=== PATIENT | male | born 1980 | race Two or more races ===

== ENCOUNTER 2017-06-25 17:13 | Emergency (ER) | payer OTHER ==
[~2017-06-25] VITALS: Ht 180.3 cm; Wt 136.1 kg
[~2017-06-25 17:13] MED LIST: KEFLEX500 MG ORAL; NKM; NYSTATIN OINT15 GM TOPIC
[2017-06-25 17:35] VITALS: BP 128/74
[2017-06-25] MEDS ORDERED: Lidocaine 1% MPF 10mg/ml 5ml INJ ONE (17:45)
[2017-06-25] MEDS ORDERED: CEPHALEXIN500 MG ORAL (18:09)
[2017-06-25 18:27] VITALS: BP 128/74
--- NOTE | 2017-06-25 20:08 | Emergency Room Report ---
History of Present Illness General Chief Complaint: Abdominal Pain Source: Patient Present Illness HPI Patient is a 37-year-old male who presented after increased generalized abdominal discomfort. Patient had gradual onset of symptoms. He reports having increased the abdominal protrusion of hernia. The patient denies any vomiting or diarrhea. He denies any fever. He had not been having any bloody stools. He reports having some recent changes in his urination as well as some blood during intercourse. Allergies: Coded Allergies: No Known Allergies (Unverified , 10/09/12) Patient History Past Medical History: see triage record Reviewed Nursing Documentation: PMH: Agreed; PSxH: Agreed Nursing Documentation-PMH Past Medical History: No Stated History Review of Systems All Other Systems: negative except mentioned in HPI Physical Exam Vital Signs Date Time Temp Pulse Resp B/P (MAP) Pulse Ox O2 Delivery O2 Flow Rate FiO2 06/25/17 17:33 97.9 78 29 128/74 99 Room Air 97.9 Sp02 EP Interpretation: reviewed, normal General Appearance: normal inspection, well appearing, no apparent distress, alert, GCS 15, obese Head: atraumatic ENT: normal ENT inspection, hearing grossly normal, normal voice Neck: normal inspection, full range of motion, supple, no bony tend Respiratory: normal inspection, lungs clear, normal breath sounds, no respiratory distress, no retraction, no wheezing Cardiovascular #1: regular rate, rhythm, no edema Gastrointestinal: normal inspection, normal bowel sounds, non tender, soft, no guarding, no hernia Genitourinary: no CVA tenderness Musculoskeletal: normal inspection, back normal, normal range of motion Neurologic: normal inspection, alert, responsive, speech normal Psychiatric: normal inspection, judgement/insight normal, mood/affect normal Skin: normal inspection, normal color, no rash Medical Decision Making Diagnostic Impression: Primary Impression: Urethritis Additional Impression: Ventral hernia without obstruction or gangrene ER Course Patient presented for abdominal pain. Differential diagnoses included ischemic bowel, appendicitis, perforated viscus, abdominal aortic aneurysm, inferior myocardial infarction, viral gastroenteritis. Patient has a benign exam and does not appear to require any further imaging or laboratory testing at this time. The patient was given empiric treatment fo antibiotic due to urinary symptoms The patient is advised to follow up with primary care doctor in 1-2 days for general surgery referral.. Patient is advised to return if any worsening condition or if any changes in status that are concerning. This report is dictated with Dragon sustainable design coordinator software which may occasionally lead to discrepancies related to use of this software. EKG Diagnostic Results Rate: normal Rhythm: NSR ST Segments: no acute changes Last Vital Signs Date Time Temp Pulse Resp B/P (MAP) Pulse Ox O2 Delivery O2 Flow Rate FiO2 06/25/17 18:27 97.9 78 29 128/74 99 Room Air 97.9 Status: improved Disposition: HOME, SELF-CARE Condition: Stable Scripts Cephalexin* (KEFLEX*) 500 Mg Capsule 500 MG ORAL EVERY 6 HOURS, #28 CAP Prov: Mitesh Montgomery 06/25/17 Referrals: [facility] (PCP) Patient Instructions: Abdominal Pain, Adult Mitesh Montgomery June 25, 2017 20:08
== END 2017-06-25 18:33 | disposition home or self-care (01) ==
LOC: EMR 17:51
DX: N34.2 Other urethritis (principal); K43.9 Ventral hernia without obstruction or gangrene
CPT/HCPCS: 96372; 99283; J0696

== ENCOUNTER 2017-11-14 00:50 | Emergency (ER) | payer MEDICAID, OTHER ==
[~2017-11-14] VITALS: Ht 180.3 cm; Wt 131.5 kg
[~2017-11-14 00:50] MED LIST changes: +CEPHALEXIN500 MG ORAL
[2017-11-14 01:13] VITALS: BP 154/87
[2017-11-14] MEDS ORDERED: NORCO 5-325 TA1 EACH ORAL (01:22)
[2017-11-14] MEDS ORDERED: PENICILLIN V P500 MG ORAL (01:22)
[2017-11-14 01:27] VITALS: BP 154/87
--- NOTE | 2017-11-14 03:50 | Emergency Room Report ---
History of Present Illness General Chief Complaint: Toothache Source: Patient Present Illness HPI Patient is a 37-year-old male who presented after increased right upper dental pain. Patient reports having recent injury which he cracked his tooth. He reports having severe pain. He denies any fever. He reports having seen at dentist and has been scheduled to have his tooth worked on. The patient reports having no vomiting. He denies any facial swelling. Allergies: Coded Allergies: No Known Allergies (Unverified , 10/09/12) Patient History Past Medical History: see triage record Reviewed Nursing Documentation: PMH: Agreed; PSxH: Agreed Nursing Documentation-PMH Past Medical History: No Stated History Review of Systems All Other Systems: negative except mentioned in HPI Physical Exam Vital Signs Date Time Temp Pulse Resp B/P (MAP) Pulse Ox O2 Delivery O2 Flow Rate FiO2 11/14/17 01:10 97.8 62 16 154/87 97 Room Air 97.9 General Appearance: well appearing, no apparent distress, alert, GCS 15, non- toxic Head: normocephalic, atraumatic ENT: hearing grossly normal, normal voice, other - dental fracture upper tooth Neck: full range of motion, supple Respiratory: no respiratory distress, speaking full sentences Musculoskeletal: no calf tenderness Neurologic: normal gait Psychiatric: mood/affect normal Skin: no rash Medical Decision Making Diagnostic Impression: Primary Impression: Tooth fracture ER Course Patient presented for toothache. Differential diagnosis included but was not limited to dental fracture, trigeminal neuralgia, dental abscess, dry socket, osteomyelitis, nerve injury. The patient was noted to have a benign exam. There is no evidence of infection. Patient given prescription for antibiotics and pain medication.The patient is advised to follow up with dentist in 1-2 days. Patient is advised to return if any worsening condition or if any changes in status that are concerning. Last Vital Signs Date Time Temp Pulse Resp B/P (MAP) Pulse Ox O2 Delivery O2 Flow Rate FiO2 11/14/17 01:27 97.8 67 16 154/87 97 Room Air 97.8 Status: improved Disposition: HOME, SELF-CARE Condition: Stable Scripts Penicillin V Potassium* (PENVK*) 500 Mg Tablet 500 MG ORAL TWICE A DAY, #14 TAB Prov: Mitesh Montgomery MD 11/14/17 Hydrocodone Bit/Acetaminophen 5-325* (NORCO 5-325*) 1 Each Tablet 1 TAB ORAL Q6H PRN for For Pain, #10 TAB 0 Refills Prov: Mitesh Montgomery MD 11/14/17 Referrals: [facility]ERR[facility] (PCP) Patient Instructions: Dental Pain Mitesh Montgomery MD Nov 14, 2017 03:50
== END 2017-11-14 01:27 | disposition home or self-care (01) ==
LOC: EMR 01:27
DX: S02.5XXA Fracture of tooth (traumatic), initial encounter for closed fracture (principal); X58.XXXA Exposure to other specified factors, initial encounter; Y99.8 Other external cause status; Z87.891 Personal history of nicotine dependence
CPT/HCPCS: 99282

== ENCOUNTER 2018-06-28 16:43 | Emergency (ER) | payer MEDICAID ==
[~2018-06-28] VITALS: Ht 175.3 cm; Wt 81.6 kg
[~2018-06-28 16:43] MED LIST changes: +NORCO 5-325 TA1 EACH ORAL; +PENICILLIN V P500 MG ORAL
--- NOTE | 2018-06-28 17:00 | NUR ---
ED Nurse Note: Patient taken down for UA.
--- NOTE | 2018-06-28 17:00 | NUR ---
ED Nurse Note: Patient walked in c/o swelling of the scrotum x 1 day. Pt rates pain at 6/10. Pt is A&O x4, V/S stable with no s/s of acute distress noted at this time. ERMD at bedside evaluating the pt.
[2018-06-28 17:03] VITALS: BP 126/83
[2018-06-28 17:16] LABS: APPEARANCE,URINE CLEAR; BILIRUBIN, URINE NEGATIVE (NEGATIVE); GLUCOSE, URINE (UA) NEGATIVE (NEGATIVE); KETONES,URINE 1+ (NEGATIVE); LEUKOCYTE ESTERASE ,URINE 2+ (NEGATIVE); NITRITE,URINE NEGATIVE (NEGATIVE); PH,URINE 6 (4.5-8.0); PROTEIN,URINE 1+ (NEGATIVE); UROBILINOGEN,URINE NORMAL MG/DL (0.0-1.0)
[2018-06-28 17:24] LABS: COLOR,URINE YELLOW
--- NOTE | 2018-06-28 18:32 | Diagnostic Imaging Report ---
EXAM: US Scrotum CLINICAL HISTORY: PAIN TECHNIQUE: Real-time ultrasound of the scrotum with color Doppler and image documentation. COMPARISON: No relevant prior studies available. FINDINGS: Right testicle: Unremarkable. No mass. No torsion. Left testicle: Unremarkable. No mass. No torsion. Epididymides: Enlarged left epididymis, particularly the tail, which is also hyperemic. Favor epididymitis. Right epididymis demonstrates a 7 mm cyst or spermatocele. Scrotum: Moderate right hydrocele. IMPRESSION: Findings suggesting left epididymitis. Moderate right hydrocele. No testicular mass or torsion.
[2018-06-28] MEDS ORDERED: Azithromycin 250mg tab ORAL ONE (18:45)
[2018-06-28] MEDS ORDERED: Lidocaine 1% MPF 10mg/ml 5ml INJ ONE (18:45)
--- NOTE | 2018-06-28 18:52 | Emergency Room Report ---
History of Present Illness General Chief Complaint: Male Urogenital Problems Source: Patient Present Illness HPI The patient presents with rest left testicular swelling and discomfort. He took some Motrin yesterday. There is no trauma. He denies any fevers or chills. He's had a lesion underneath his foreskin that his doctor said was inflammation of the tip of his penis. This has happened in the past and seems related to sexual activity. He denies there being any pain in the tip of the penis. There is no discharge or dysuria. He's never had this problem with his testicle before but is concerned that this might be something serious and so he presented here. The pain is 6/10 at this time. Worse when he standing up and better when he lays down. There is no radiation of the pain. He denies having an inguinal hernia but he's had no ventral hernia in the past. This is not bothering this time. The patient is never had a diagnosis of herpes. He says the lesions are occasional on his penis. No throat pain, joint pain, other rashes, headache, nausea, vomiting, diarrhea. He is anxious about what might be happening in his testicle. Allergies: Coded Allergies: No Known Allergies (Unverified , 10/09/12) Patient History Past Medical History: see triage record Social History: Denies: smoking Social History Narrative From home Reviewed Nursing Documentation: PMH: Agreed; PSxH: Agreed Nursing Documentation-PMH Past Medical History: No Stated History Review of Systems All Other Systems: negative except mentioned in HPI Physical Exam Vital Signs Date Time Temp Pulse Resp B/P (MAP) Pulse Ox O2 Delivery O2 Flow Rate FiO2 06/28/18 16:56 99.0 78 18 97 Room Air 06/28/18 17:03 126/83 Sp02 EP Interpretation: reviewed, normal General Appearance: well appearing, no apparent distress, GCS 15 Head: normocephalic Eyes: bilateral eye normal inspection, bilateral eye PERRL, bilateral eye EOMI ENT: moist mucus membranes Neck: supple Respiratory: lungs clear, normal breath sounds Cardiovascular #1: regular rate, rhythm Cardiovascular #2: 2+ radial (R) Gastrointestinal: non tender, soft, no hernia, overweight Genitourinary: no CVA tenderness, other - L testicular swelling and tender epidydimus (slight) - uncircumcised, small ulcerated lesions base of glans Musculoskeletal: back normal, gait/station normal, normal range of motion Neurologic: alert, oriented x3, grossly normal Psychiatric: anxious Skin: normal inspection, warm/dry Medical Decision Making Diagnostic Impression: Primary Impression: Acute epididymitis Additional Impression: Balanitis ER Course Patient presents with testicular pain and swelling. Differential includes torsion, epididymitis, hydrocele amongst others. Exam is against torsion however the patient needs to have evaluation with urinalysis and ultrasound. Ultrasound with epididymitis. Urinalysis pyuria. The patient is treated with Rocephin and azithromycin here and placed on ciprofloxacin. The lesions on the glans appear that they might be herpetic discussed with the patient and he was told that he needs to follow-up. Patient stable for outpatient observation and treatment. Laboratory Tests Test 06/28/18 17:03 Urine Color Yellow Urine Appearance Clear Urine pH 6 (4.5-8.0) Urine Specific [place] 1.020 (1.005-1.035) Urine Protein 1+ (NEGATIVE) H Urine Glucose (UA) Negative (NEGATIVE) Urine Ketones 1+ (NEGATIVE) H Urine Blood 3+ (NEGATIVE) H Urine Nitrite Negative (NEGATIVE) Urine Bilirubin Negative (NEGATIVE) Urine Urobilinogen Normal MG/DL (0.0-1.0) Urine Leukocyte Esterase 2+ (NEGATIVE) H Urine RBC 2-4 /HPF (0 - 0) H Urine WBC 5-10 /HPF (0 - 0) H Urine Squamous Epithelial Cells Few /LPF (NONE/OCC) Urine Bacteria Few /HPF (NONE) Urine Mucus Moderate /LPF (NONE/OCC) H CT/MRI/US Diagnostic Results CT/MRI/US Diagnostic Results : Imaging Test Ordered: u/s testicle Impression L hydrocele, R epididymitis Last Vital Signs Date Time Temp Pulse Resp B/P (MAP) Pulse Ox O2 Delivery O2 Flow Rate FiO2 06/28/18 19:06 98.8 81 16 131/79 98 Room Air Status: improved Disposition: HOME, SELF-CARE Condition: Improved Scripts Ciprofloxacin Hcl* (CIPROFLOXACIN HCL*) 500 Mg Tablet 500 MG ORAL Q12H, #14 TAB 0 Refills Prov: Bobby Chacko MD 06/28/18 Bobby Chacko MD June 28, 2018 18:52
[2018-06-28] MEDS ORDERED: CIPROFLOXACIN500 M2 ORAL (18:54)
--- NOTE | 2018-06-28 19:00 | NUR ---
ER DISCHARGE NOTE: Patient is cleared to be discharged per ERMD, pt is aox4, on room air, with stable vital signs. pt was given dc and prescription instructions, pt was able to verbalize understanding, pt id band removed. pt is able to ambulate with steady gait. pt took all belongings.
[2018-06-28 19:03] VITALS: BP 131/79
[2018-06-28 19:06] VITALS: BP 131/79
== END 2018-06-29 01:20 | disposition home or self-care (01) ==
LOC: EMR 23:09
DX: N45.1 Epididymitis (principal); N48.1 Balanitis
CPT/HCPCS: 76870; 81003; 96372; 99284; J0696; Q0144

== ENCOUNTER 2018-10-26 23:37 | Emergency (ER) | payer MEDICAID ==
[~2018-10-26] VITALS: Ht 180.3 cm; Wt 122.5 kg
[~2018-10-26 23:37] MED LIST changes: +CIPROFLOXACIN500 M2 ORAL
[2018-10-26 23:50] VITALS: BP 143/101
--- NOTE | 2018-10-26 23:50 | NUR ---
ED Nurse Note: patient ambulated to ed with injury to left thumb x 1600. pt hit thumb with hammer by accident.
--- NOTE | 2018-10-27 00:17 | Emergency Room Report ---
History of Present Illness General Chief Complaint: Upper Extremity Injury Source: Patient Present Illness HPI The patient hemorrhage his left thumb at 1830. There is a bruise underneath the nail. The pain is rated 8/10. It is throbbing and worse when the hand is dependent. He denies any numbness. His tetanus is up-to-date. Allergies: Coded Allergies: No Known Allergies (Unverified , 10/09/12) Patient History Past Medical History: see triage record Social History: Denies: smoking Social History Narrative This did not happen at work Reviewed Nursing Documentation: PMH: Agreed; PSxH: Agreed Nursing Documentation-PMH Past Medical History: No Stated History Review of Systems Constitutional: Denies: fever Musculoskeletal: Reports: see HPI Skin: Reports: see HPI Neurological: Reports: see HPI Hematologic/Lymphatic: Reports: see HPI Physical Exam Vital Signs Date Time Temp Pulse Resp B/P (MAP) Pulse Ox O2 Delivery O2 Flow Rate FiO2 10/26/18 23:48 98.2 70 14 143/101 (115) 96 Room Air Sp02 EP Interpretation: reviewed, normal General Appearance: well appearing, no apparent distress, GCS 15 Head: normocephalic Eyes: bilateral eye normal inspection, bilateral eye PERRL ENT: moist mucus membranes Respiratory: speaking full sentences Cardiovascular #1: regular rate, rhythm Cardiovascular #2: 2+ radial (L) - Distal refill normal Gastrointestinal: normal inspection Musculoskeletal: gait/station normal Neurologic: alert, oriented x3, distal neuro normal, grossly normal Psychiatric: mood/affect normal Skin: other - Subungual hematoma left thumb Procedures Additional Procedure Procedure Narrative After chlorhexidine prep the nail was treponeme to with an electric cauterizer. Blood came out and the patient had relief. Medical Decision Making Diagnostic Impression: Primary Impression: Subungual hematoma Additional Impression: Left thumb fracture ER Course Patient presents with injury to his left thumb. The supple ungual hematoma needs to be drained. X-rays are indicated to determine if there is a fracture. The patient will also be given analgesia. X-ray with distal fracture. See procedure note. Patient improved with decreased pain. Discussed treatment plan with patient. Patient is stable for outpatient observation and treatment. Other X-Ray Diagnostic Results Other X-Ray Diagnostic Results : X-Ray ordered: Left thumb # of Views/Limited Vs Complete: 3 View Indication: Other EP Interpretation: Yes Interpretation: no dislocation, no soft tissue swelling, other - Fracture Impression: Other Electronically Signed by: Electronically signed by Bobby Chacko MD Last Vital Signs Date Time Temp Pulse Resp B/P (MAP) Pulse Ox O2 Delivery O2 Flow Rate FiO2 10/26/18 23:48 98.2 70 14 143/101 (115) 96 Room Air Status: improved Disposition: HOME, SELF-CARE Condition: Improved Scripts Ibuprofen* (MOTRIN*) 600 Mg Tablet 600 MG ORAL Q6H PRN for For Pain, #16 TAB 0 Refills Prov: Bobby Chacko MD 10/27/18 Bobby Chacko MD Oct 27, 2018 00:17
[2018-10-27] MEDS ORDERED: IBUPROFEN600 MG ORAL (01:24)
[2018-10-27 01:31] VITALS: BP 143/101
--- NOTE | 2018-10-27 01:35 | Diagnostic Imaging Report ---
EXAM: XR Left Hand Complete, 3 or More Views CLINICAL HISTORY: TRAUMA TECHNIQUE: Frontal, lateral and oblique views of the left hand. COMPARISON: No relevant prior studies available. FINDINGS: Bones/joints: No acute fracture. No dislocation. Soft tissues: Unremarkable. No radiopaque foreign body. IMPRESSION: No acute osseous findings.
== END 2018-10-27 01:31 | disposition home or self-care (01) ==
LOC: EMR 23:59
DX: S62.522A Displaced fracture of distal phalanx of left thumb, initial encounter for closed fracture (principal); S60.112A Contusion of left thumb with damage to nail, initial encounter; X58.XXXA Exposure to other specified factors, initial encounter; Y92.9 Unspecified place or not applicable
CPT/HCPCS: 11740; 73130; 99283; Z7502

== ENCOUNTER 2018-12-18 17:34 | Emergency (ER) | payer MEDICAID ==
[~2018-12-18] VITALS: Ht 180.3 cm; Wt 122.0 kg
[~2018-12-18 17:34] MED LIST changes: +IBUPROFEN600 MG ORAL
[2018-12-18 17:40] VITALS: BP 144/84
--- NOTE | 2018-12-18 17:40 | NUR ---
ED Nurse Note: Patient walked into ED c/o male urogenital problems, states that he had a surgery yesterday to be circumsized and is complaining that his penis has now sunk in, complains of 2/10 pain. patient does state that he can still make urine however only when sitting down due to the urine dripping down. patient is alert and oriented x4, assessed surgical site with Dr. Hernandez, stitches intact and no drainage noted. will continue to monitor
[2018-12-18] MEDS ORDERED: IBUPROFEN600 MG ORAL (17:45)
[2018-12-18] MEDS ORDERED: AMOXICILLIN500 MG ORAL (17:45)
--- NOTE | 2018-12-18 18:05 | Emergency Room Report ---
History of Present Illness General Chief Complaint: Pain Source: Patient Present Illness HPI Disclaimer: Please note that this report is being documented using DRAGON technology. This can lead to erroneous entry secondary to incorrect interpretation by the dictating instrument. HPI: This is a 38-year-old male presenting for evaluation of a postop wound check. The patient underwent a circumcision for phimosis at [facility] Saturday, 12/15. He was discharged that same day. Over the next 3 days he has noticed scrotal swelling and penile retraction but denies any significant bleeding. He notes oozing but stitches remain intact. Denies vomiting, abdominal pain, fevers, purulent drainage or any other changes since his operation. He was reevaluated at the [place] emergency department 2 days ago for wound evaluation where an ultrasound of his testicles were performed which was reportedly unremarkable. He notes improvement in the scrotal swelling but was concerned over persistent oozing coming from the suture sites. He is here to make sure that everything is okay. He has an appointment with his urologist for postop check and repeat ultrasound tomorrow morning. Patient is able to pass urine. Denies dysuria and hematuria PMH: Phimosis PSH: Circumcision Allergies: None Social Hx: Denies drug or alcohol abuse Allergies: Coded Allergies: No Known Allergies (Unverified , 10/09/12) Nursing Documentation-PMH Past Medical History: No Stated History Review of Systems All Other Systems: negative except mentioned in HPI Physical Exam Vital Signs Date Time Temp Pulse Resp B/P (MAP) Pulse Ox O2 Delivery O2 Flow Rate FiO2 12/18/18 17:40 98.2 77 18 144/84 (104) 96 Room Air General: Awake and alert, anxious appearing male, well-kempt HEENT: NC/AT. EOMI. Resp: Normal work of breathing : Significant scrotal edema and ecchymosis over the suprapubic region and around the scrotum itself. No tenderness. Testes are palpable and nontender. Surgical incisions are intact. Dried blood around them but no active bleeding. No purulent drainage. No significant erythema around the glans. Skin: Intact. No abrasions, laceration or rash over the exposed skin MSK: Normal tone and bulk. Moving all extremities. No obvious deformity. Neuro: Awake and alert. Mentating appropriately Medical Decision Making Diagnostic Impression: Primary Impression: Encounter for postoperative wound check ER Course 38-year-old male who recently underwent a circumcision for phimosis 3 days ago presents for a wound check. Patient appears to be healing well. He is already been evaluated by his urologist 2 days ago and is now going to be evaluated tomorrow morning in the urologist office. Scrotal ultrasound performed at outpatient facility was reportedly unremarkable. The patient states the edema is improving though he was concerned over the persistent oozing. There is no active oozing at this point I only see dried blood and intact sutures. No sign of infection and the patient is able to pass urine. He has no other complaints and is simply anxious over this operation. I provided reassurance as well as strict return precautions however at this point I feel he can be discharged without any further work-up to follow-up with his already scheduled appointment tomorrow morning with his urologist for postop check and reportedly to have a repeat testicular ultrasound given the scrotal edema. Patient agrees to return to the emergency department should there be any changes in his condition. He will be discharged home for outpatient follow-up. Last Vital Signs Date Time Temp Pulse Resp B/P (MAP) Pulse Ox O2 Delivery O2 Flow Rate FiO2 12/18/18 17:40 98.2 77 18 144/84 (104) 96 Room Air Disposition: HOME, SELF-CARE Condition: Stable Patient Instructions: Circumcision, Adult, Care After Additional Instructions: Your surgical wounds were evaluated in the emergency department today. You appear to be healing normally and I strongly encourage you to keep your appointment with your urologist scheduled for tomorrow morning to have your postop evaluation as well as the ultrasound that was planned. Continue wound care as instructed. Return to the emergency department if you are unable to pass urine, experience any testicular pain or worsening swelling, significant bleeding, if you pop any stitches, develop a fever, vomiting or any other sudden changes in your health. Marco Hernandez MD Dec 18, 2018 18:05
[2018-12-18 18:10] VITALS: BP 140/82
--- NOTE | 2018-12-18 18:10 | NUR ---
ER DISCHARGE NOTE: Patient is cleared to be discharged per ERMD, pt is aox4, on room air, with stable vital signs. pt was given dc instructions, pt was able to verbalize understanding, pt id band and removed without complications. pt is able to ambulate with steady gait. pt took all belongings.
== END 2018-12-18 18:30 | disposition home or self-care (01) ==
LOC: EMR 18:15
DX: N50.89 Other specified disorders of the male genital organs (principal); Z98.890 Other specified postprocedural states
CPT/HCPCS: 99282

== ENCOUNTER 2018-12-25 17:40 | Emergency (ER) | payer MEDICAID ==
[~2018-12-25] VITALS: Ht 180.3 cm; Wt 122.0 kg
[~2018-12-25 17:40] MED LIST changes: +AMOXICILLIN500 MG ORAL
[2018-12-25 17:49] VITALS: BP 150/91
[2018-12-25] MEDS ORDERED: DIOVAN80 MG ORAL (17:53)
--- NOTE | 2018-12-25 17:59 | NUR ---
ED Nurse Note: Pt walked in from home due to check up on circumcision site. per pt it is still bleeding and stitches seem opened. surgery was Dec 15, 2018. AAO x4 and ambulatory.
[2018-12-25] MEDS ORDERED: DIOVAN HCT 80MG1 TAB ORAL (18:52)
--- NOTE | 2018-12-25 18:55 | Emergency Room Report ---
History of Present Illness General Chief Complaint: Wound Recheck/Suture Removal Source: Patient Present Illness HPI Disclaimer: Please note that this report is being documented using [employer] technology. This can lead to erroneous entry secondary to incorrect interpretation by the dictating instrument. HPI: 38-year-old male with a history of circumcision for phimosis on 12/15 form to [facility] presents for evaluation of wound. The patient was seen by me in the emergency department last week with similar complaints. He states that he has been healing well however earlier today he was straining to urinate and believes he may have ripped 1 of his stitches. He noted persistent oozing throughout the day and was unable to see his urologist as he was unavailable. He is otherwise passing urine without difficulty. Bleeding is currently stopped. Denies any purulent drainage, pain, abdominal tenderness, vomiting, diarrhea, fevers or flank pain. Otherwise he has no complaints and is simply requesting evaluation of his wounds to see if he needs additional stitches put in. He is also asking for refill of his valsartan prior to his PMD appointment on 12/29 as he has run out of his medications. PMH: Phimosis PSH: Circumcision Allergies: None Social Hx: Denies drug or alcohol abuse Allergies: Coded Allergies: No Known Allergies (Unverified , 10/09/12) Nursing Documentation-PMH Past Medical History: No History, Except For Hx Hypertension: Yes Review of Systems All Other Systems: negative except mentioned in HPI Physical Exam Vital Signs Date Time Temp Pulse Resp B/P (MAP) Pulse Ox O2 Delivery O2 Flow Rate FiO2 12/25/18 17:49 98.4 63 18 150/91 (110) 96 Room Air General: Awake and alert, no acute distress HEENT: NC/AT. EOMI. Resp: Normal work of breathing : Scrotum is edematous though considerably smaller than on my last evaluation on previous visit. Can visualize the meatus, no active bleeding. Possible suture rupture just proximal to the meatus though difficult to fully evaluate. No active bleeding, no signs of infection, no purulence. No tenderness in the scrotum. MSK: Normal tone and bulk. Moving all extremities. No obvious deformity. Neuro: Awake and alert. Mentating appropriately Medical Decision Making Diagnostic Impression: Primary Impression: Encounter for wound re-check Additional Impression: Medication refill ER Course 38-year-old male presents for evaluation of wound recheck after his circumcision. Is possible the patient ripped a stitch however there is no active bleeding at this time and no evidence of infection or other significant pathology. The patient not complaining any pain or discomfort. He will follow- up with his urologist tomorrow. He is also requesting a refill of his valsartan which we will provide. He is scheduled to follow-up with his PMD on 12/29. He will be discharged from the emergency department with urology follow- up tomorrow. Discussed reasons to return to the emergency department. He understands and agrees with this treatment plan. Last Vital Signs Date Time Temp Pulse Resp B/P (MAP) Pulse Ox O2 Delivery O2 Flow Rate FiO2 12/25/18 17:49 98.4 63 18 150/91 96 Room Air Disposition: HOME, SELF-CARE Condition: Stable Scripts Valsartan (Diovan) 80 Mg Tablet 1 TAB ORAL DAILY for 14 Days, #14 TAB Prov: Marco Hernandez MD 12/25/18 Patient Instructions: Wound Check Additional Instructions: Please follow-up with your urologist as soon as possible for wound reevaluation. If you have significant basic bleeding or pus draining from the site return to the emergency department for reevaluation. Otherwise, follow-up with your urologist tomorrow. Continue applying bandages and support as instructed. We have given you a 2-week refill of your blood pressure medications. Follow-up with your PMD at your scheduled appointment on 12/29. Return to the emergency department any new or worsening symptoms. Marco Hernandez MD Dec 25, 2018 18:55
[2018-12-25 19:00] VITALS: BP 145/79
--- NOTE | 2018-12-25 19:00 | NUR ---
ER DISCHARGE NOTE: Patient is cleared to be discharged per PA, pt is aox4, on room air, with stable vital signs. pt was given dc and prescription instructions, pt was able to verbalize understanding, pt id band removed without complications. pt is able to ambulate with steady gait. pt took all belongings.
== END 2018-12-25 19:05 | disposition home or self-care (01) ==
LOC: EMR 18:51
DX: N47.1 Phimosis (principal); Z76.0 Encounter for issue of repeat prescription; I10 Essential (primary) hypertension
CPT/HCPCS: 99281

== ENCOUNTER 2020-03-11 22:22 | Emergency (ER) | payer MEDICAID ==
[~2020-03-11] VITALS: Ht 177.8 cm; Wt 111.1 kg
[~2020-03-11 22:22] MED LIST changes: +DIOVAN HCT 80MG1 TAB ORAL; +DIOVAN80 MG ORAL
[2020-03-11] MEDS ORDERED: DOXYCYCLINE MO100 MG ORAL (22:33)
[2020-03-11 22:35] VITALS: BP 147/98
--- NOTE | 2020-03-11 22:35 | NUR ---
Nurse Note: Pt walked in c/o STI check. Pt stated he had unprotected sex a few days ago and is now noticed discharge on urination. Denies pain when urination
--- NOTE | 2020-03-11 22:40 | NUR ---
Nurse Note: Pulled out two 250mg rocephen vials instead of one 500mg rocephen vial. Original order was one 250mg recephen but was mixed with lidocane already.
[2020-03-11] MEDS ORDERED: Lidocaine 1% MPF 10mg/ml 5ml INJ ONE (22:45)
[2020-03-11] MEDS ORDERED: cefTRIAXone 500mg Inj IM ONE (22:45)
[2020-03-11] MEDS ORDERED: TRUVADA 200 MG1 EAC1 ORAL (22:57)
[2020-03-11] MEDS ORDERED: ISENTRESS400 MG ORAL (22:57)
[2020-03-11 23:05] VITALS: BP 147/98
--- NOTE | 2020-03-11 23:05 | NUR ---
ED Nurse Note: Pt cleared by health care Provider for discharge. DC instructions/prescription was given and explained to pt and verbalized understanding of teachings. Instructed pt to follow up wtih PCP within 24-72 hrs. All medical deviecs such as ID band removed. Pt is AAO x4, ambulatory and left with all personal belongings.
--- NOTE | 2020-03-11 23:07 | Emergency Room Report ---
History of Present Illness General Chief Complaint: Male Urogenital Problems Present Illness HPI 39-year-old male here with dysuria. Patient says that 24 hours ago he had unprotected sex with a woman who uses IV drugs and the patient is worried that he may have been exposed to HIV or another STD. Patient says that today "it stung a little bit when I was urinating, but now it does not and I do not know whether this is all in my head." Patient is mostly worried about his exposure to possible HIV. He does not know the HIV status of the woman with whom he had sexual intercourse. At this time he denies any headaches, vision changes, fevers, chills, neck stiffness, chest pain, palpitation, shortness of breath, back pain, dumping, nausea, vomiting, diarrhea, dysuria. Allergies: Coded Allergies: No Known Allergies (Unverified , 10/09/12) COVID-19 Screening Contact w/high risk pt: No Experienced COVID-19 symptoms?: No COVID-19 Testing performed APPLICATION MANAGER: No Nursing Documentation-PMH Hx Hypertension: Yes Review of Systems All Other Systems: negative except mentioned in HPI Physical Exam Vital Signs Date Time Temp Pulse Resp B/P (MAP) Pulse Ox O2 Delivery O2 Flow Rate FiO2 03/11/20 22:26 98.4 90 16 147/98 (114) 98 Room Air Sp02 EP Interpretation: reviewed, normal General Appearance: no apparent distress, alert, GCS 15, non-toxic Head: normocephalic, atraumatic Eyes: bilateral eye normal inspection, bilateral eye PERRL ENT: hearing grossly normal, normal pharynx, no angioedema, normal voice Neck: full range of motion, supple/symm/no masses Respiratory: chest non-tender, lungs clear, normal breath sounds, speaking full sentences Cardiovascular #1: regular rate, rhythm, no edema Cardiovascular #2: 2+ carotid (R), 2+ carotid (L), 2+ radial (R), 2+ radial (L), 2+ dorsalis pedis (R), 2+ dorsalis pedis (L) Gastrointestinal: normal bowel sounds, non tender, soft, non-distended, no guarding, no rebound Rectal: deferred Genitourinary: normal inspection, no CVA tenderness Musculoskeletal: back normal, normal range of motion, gait/station normal, non- tender Neurologic: alert, motor strength/tone normal, oriented x3, sensory intact, responsive, speech normal Psychiatric: judgement/insight normal, memory normal, mood/affect normal, no suicidal/homicidal ideation Lymphatic: no adenopathy Medical Decision Making Diagnostic Impression: Primary Impression: Urethritis Additional Impression: Possible exposure to STD ER Course 39-year-old male here after unprotected sexual intercourse with a woman who uses IV drugs. Patient says that earlier today he had a moment of dysuria but he is unsure whether this was "all in my head." At this time patient does not have any symptoms. He was mainly worried about HIV exposure. Patient was given 500 mg of intramuscular Rocephin, and prescription for doxycycline to take twice da mouna for 2 weeks. He was also given postexposure prophylaxis medications Isentress and Truvada to take for 28 days. Patient was told to return with any worsening symptoms. He expressed understanding and was discharged. Last Vital Signs Date Time Temp Pulse Resp B/P (MAP) Pulse Ox O2 Delivery O2 Flow Rate FiO2 03/11/20 22:35 98.4 88 16 147/98 98 Room Air Disposition: HOME, SELF-CARE Condition: Stable Scripts Emtricitabine/Tenofovir 200-300MG* (TRUVADA 200-300MG*) 1 Each Tablet 1 TAB ORAL DAILY for 28 Days, TAB Prov: Jorge Schaffer M.D. 03/11/20 Raltegravir (Isentress) 400 Mg Tablet 400 MG ORAL EVERY 12 HOURS for 28 Days, TAB Prov: Jorge Schaffer M.D. 03/11/20 Doxycycline Monohydrate* (DOXYCYCLINE MONOHYDRATE*) 100 Mg Capsule 100 MG ORAL Q12H, #14 CAP 0 Refills Prov: Jorge Schaffer M.D. 03/11/20 Referrals: [facility]ERR[facility] ([facility]P) [facility] [place] [facility] [place]/[facility] [place] *Patients are seen by appointment only* Patient Instructions: Urethritis, Adult Additional Instructions: Please follow-up with your primary care doctor in the next 1 to 3 days to discuss this emergency department visit and for reevaluation. If you have any new or worsening symptoms please return to the emergency department for reevaluation. Jorge Schaffer M.D. Mar 11, 2020 23:07
== END 2020-03-11 23:05 | disposition home or self-care (01) ==
LOC: EMR 22:43
DX: N34.2 Other urethritis (principal); Z20.2 Contact with and (suspected) exposure to infections with a predominantly sexual mode of transmission; I10 Essential (primary) hypertension
CPT/HCPCS: 96372; J0696; Z7502; 99283